=== PATIENT | female | born 1995 | race African-American/Black ===

== ENCOUNTER 2021-05-06 01:24 | Emergency (ER) | payer MEDICAID ==
[~2021-05-06] VITALS: Ht 162.6 cm; Wt 62.0 kg
[2021-05-06] MEDS ORDERED: IBUPROFEN 600MG TABLET PO ONE (03:45)
[2021-05-06 03:51] LABS: BASOPHILS % 1.3 % (0.0-2.0); EOSINOPHILS % 0.7 % (0.0-5.0); HEMATOCRIT. 34.4 % (36.0-48.0); LYMPHOCYTES % 48.5 % (20.0-50.0); MEAN CORPUSCULAR HEMOGLOBIN 25.1 pg (28.0-32.0); MEAN CORPUSCULAR VOLUME 78.8 fL (81.0-99.0); MEAN PLATELET VOLUME 7.6 fl (7.4-10.4); MONOCYTES % 4.6 % (2.0-8.0); NEUTROPHILS % 44.9 % (40.0-76.0); PLATELET 480 x1000/uL (130-400); RED BLOOD CELL COUNT 4.36 mill/uL (4.2-5.4); RED CELL DISTRIBUTION WIDTH 19.1 % (11.6-14.6)
[2021-05-06 03:55] LABS: CHLORIDE 110 mEq/L (98-107)
[2021-05-06 04:11] LABS: HCG SCREEN NEGATIVE
[2021-05-06] MEDS ORDERED: KETOROLAC 15MG/ML VIAL IM ONE (04:45)
[2021-05-06 05:30] VITALS: BP 142/87
== END 2021-05-06 05:35 | disposition home or self-care (01) ==
LOC: ER 01:24
DX: R07.89 Other chest pain (principal); D64.9 Anemia, unspecified; J45.909 Unspecified asthma, uncomplicated; G43.909 Migraine, unspecified, not intractable, without status migrainosus; F12.10 Cannabis abuse, uncomplicated
CPT/HCPCS: 36415; 71045; 76604; 80048; 81025; 84703; 85025; 93005; 96372; 99285; J1885